=== PATIENT | female | born 1950 | race Asian ===

== ENCOUNTER 2016-03-30 21:21 | Emergency (ER) | payer OTHER ==
[~2016-03-30] VITALS: Ht 160 cm; Wt 61.7 kg
[2016-03-30 21:24] VITALS: BP 162/90; PULSE 80; RESP 18; TEMP 97.9; O2SAT 99
[2016-03-30] MEDS ORDERED: NACL 0.9% 1,000 ML IV ONE (21:30)
[2016-03-30 22:23] LABS: BASOPHILS # (AUTO) 0.1 K/uL (0.0-0.2); BASOPHILS % (AUTO) 0.5 % (0.0-2.0); EOSINOPHILS % (AUTO) 0.2 % (0.0-4.0); HEMATOCRIT 36.1 % (36-48); HEMOGLOBIN 12.4 g/dL (12.0-16.0); LYMPHOCYTES # (AUTO) 1.7 K/uL (1.0-5.5); LYMPHOCYTES % (AUTO) 15.4 % (20.5-51.5); MEAN CORPUSCULAR HEMOGLOBIN 30 pg (27-31); MEAN CORPUSCULAR HGB CONC 34 % (32-36); MEAN CORPUSCULAR VOLUME 87 fL (79.0-98.0); MONOCYTES # (AUTO) 0.6 K/uL (0.0-1.0); MONOCYTES % (AUTO) 5.7 % (1.7-9.3); NEUTROPHILS # (AUTO) 8.6 K/uL (1.8-7.7); NEUTROPHILS % (AUTO) 78.2 % (40.0-70.0); PLATELET COUNT (AUTO) 204 K/uL (130-430); RED BLOOD CELL COUNT(AUTO) 4.15 MIL/uL (4.2-6.2); RED CELL DISTRIBUTION WIDTH 12.6 % (9.0-15.0)
[2016-03-30 22:34] LABS: CALCIUM 9.2 mg/dL (8.4-11.0); CREATININE 0.72 mg/dL (0.55-1.30); POTASSIUM 3.8 mmol/L (3.5-5.1)
[2016-03-30 22:38] LABS: ALBUMIN 3.9 g/dL (3.4-4.8); TOTAL BILIRUBIN 0.3 mg/dL (0.0-1.0); TOTAL PROTEIN, SERUM 7.9 g/dL (6.4-8.3)
[2016-03-30 23:37] LABS: CHOLESTEROL 174 mg/dL (<200); HDL CHOLESTEROL 66 mg/dL (>55); LDL CHOLESTEROL 100 mg/dL (<100); TRIGLYCERIDES 46 mg/dL (30-150)
[2016-03-31 00:44] LABS: BILIRUBIN,URINE NEGATIVE (NEGATIVE); BLOOD, URINE NEGATIVE (NEGATIVE); CLARITY/URINE CLEAR (CLEAR); COLOR,URINE YELLOW (YELLOW); GLUCOSE,URINE NEGATIVE (NEGATIVE); KETONES,URINE NEGATIVE (NEGATIVE); LEUKOCYTE ESTERASE ,URINE NEGATIVE (NEGATIVE); NITRITE, URINE NEGATIVE (NEGATIVE); PROTEIN URINE NEGATIVE (NEGATIVE); UROBILINOGEN,URINE 0.2 (0.2-1.0)
[2016-03-31 00:47] VITALS: BP 133/74; PULSE 81; RESP 18; TEMP 98.1; O2SAT 99
== END 2016-03-31 00:47 | disposition home or self-care (01) ==
LOC: SED 21:21
DX: H81.10 Benign paroxysmal vertigo, unspecified ear (principal); R11.2 Nausea with vomiting, unspecified
CPT/HCPCS: 36415; 80053; 80061; 81003; 84484; 85025; 93005; 96360; 99285; J7030

== ENCOUNTER 2016-08-29 07:16 | Outpatient (CLI) | payer OTHER ==
[2016-08-29 08:26] LABS: ALBUMIN 3.9 g/dL (3.4-4.8); CALCIUM 9.3 mg/dL (8.4-11.0); CREATININE 0.69 mg/dL (0.55-1.30); POTASSIUM 4.9 mmol/L (3.5-5.1); TOTAL BILIRUBIN 0.5 mg/dL (0.0-1.0)
== END 2016-08-29 20:00 | disposition home or self-care (01) ==
LOC: SLB 07:16
PROVIDERS: ATTEND Family Medicine
DX: R13.19 Other dysphagia (principal); R79.89 Other specified abnormal findings of blood chemistry
CPT/HCPCS: 36415; 80053; 80061; 83036

== ENCOUNTER 2017-01-27 07:54 | Outpatient (CLI) | payer OTHER ==
[2017-01-27 09:18] LABS: BASOPHILS % (AUTO) 0.1 % (0.0-2.0); EOSINOPHILS # (AUTO) 0.1 K/uL (0.0-0.4); EOSINOPHILS % (AUTO) 0.8 % (0.0-4.0); HEMATOCRIT 38.7 % (36-48); HEMOGLOBIN 12.7 g/dL (12.0-16.0); MEAN CORPUSCULAR HEMOGLOBIN 30 pg (27-31); MEAN CORPUSCULAR HGB CONC 33 % (32-36); MEAN CORPUSCULAR VOLUME 90 fL (79.0-98.0); MONOCYTES # (AUTO) 0.6 K/uL (0.0-1.0); MONOCYTES % (AUTO) 7.8 % (1.7-9.3); NEUTROPHILS # (AUTO) 4.6 K/uL (1.8-7.7); NEUTROPHILS % (AUTO) 64.3 % (40.0-70.0); PLATELET COUNT (AUTO) 277 K/uL (130-430); RED BLOOD CELL COUNT(AUTO) 4.28 MIL/uL (4.2-6.2); RED CELL DISTRIBUTION WIDTH 12.2 % (9.0-15.0); WHITE BLOOD COUNT (AUTO) 7.3 K/uL (4.8-10.8)
[2017-01-27 09:32] LABS: ALBUMIN 4.2 g/dL (3.4-4.8); CALCIUM 9.7 mg/dL (8.4-11.0); CREATININE 0.67 mg/dL (0.55-1.30); POTASSIUM 4.1 mmol/L (3.5-5.1); TOTAL BILIRUBIN 0.4 mg/dL (0.0-1.0)
[2017-01-27 10:02] LABS: ERYTHROCYTE SEDIMENTATION RATE 20 MM/HR (0-20)
[2017-01-28 11:07] LABS: RA LATEX TURBID <10.0 IU/mL (0.0-13.9)
[2017-01-28 18:16] LABS: ANTI NUCLEAR AB WITH REFLEX Negative (Negative)
[2017-01-29 08:34] LABS: HEMOGLOBIN A1C 5.7 % (4.8-5.6)
[2017-01-29 19:06] LABS: CCP IgG AB 3 units (0-19)
== END 2017-01-27 21:01 | disposition home or self-care (01) ==
LOC: SUS 07:54
PROVIDERS: ATTEND Physician Assistant Medical
DX: Z12.31 Encounter for screening mammogram for malignant neoplasm of breast (principal); R73.9 Hyperglycemia, unspecified; M13.0 Polyarthritis, unspecified
CPT/HCPCS: 36415; 76700; 80053; 80061; 82306; 83036; 85025; 85651; 86038; 86200; 86431; G0202

== ENCOUNTER 2017-02-20 10:32 | Outpatient (CLI) | payer OTHER ==
[2017-02-20 11:25] LABS: BILIRUBIN,URINE NEGATIVE (NEGATIVE); BLOOD, URINE NEGATIVE (NEGATIVE); CLARITY/URINE CLEAR (CLEAR); COLOR,URINE YELLOW (YELLOW); GLUCOSE,URINE NEGATIVE (NEGATIVE); KETONES,URINE TRACE (NEGATIVE); LEUKOCYTE ESTERASE ,URINE TRACE (NEGATIVE); NITRITE, URINE NEGATIVE (NEGATIVE); PH,URINE 5.5 (5.0-8.0); PROTEIN URINE NEGATIVE (NEGATIVE); UROBILINOGEN,URINE 0.2 (0.2-1.0)
[2017-02-20 11:50] LABS: BACTERIA,URINE FEW /HPF (None Seen); MUCUS,URINE 1+ /LPF (None Seen); RBC,URINE 0-3 /HPF (0-3)
[2017-02-21 12:06] LABS: PTH, INTACT 33 pg/mL (15-65)
== END 2017-02-20 20:31 | disposition home or self-care (01) ==
LOC: SLB 10:32
PROVIDERS: ATTEND Family Medicine
DX: M81.0 Age-related osteoporosis without current pathological fracture (principal)
CPT/HCPCS: 36415; 81000-TC; 82306; 83735-TC; 83970; 84155; 84155-TC; 84165; 84443-TC; 86335; 87086

== ENCOUNTER 2017-05-22 18:37 | Outpatient (CLI) | payer OTHER ==
[2017-05-26 06:08] LABS: IMMUNOGLOBULIN G, SERUM 1130 mg/dL (700-1600); IMMUNOGLOBULIN M, SERUM 108 mg/dL (26-217)
[2017-05-26 08:18] LABS: A/G RATIO 1.3 (0.7-1.7); ALBUMIN 4.4 g/dL (2.9-4.4); ALPHA-1-GLOBULIN 0.2 g/dL (0.0-0.4); ALPHA-2-GLOBULIN 0.8 g/dL (0.4-1.0); BETA GLOBULIN 1.2 g/dL (0.7-1.3); GAMMA GLOBULIN 1.2 g/dL (0.4-1.8); GLOBULIN, TOTAL 3.5 g/dL (2.2-3.9); M-SPIKE Not Observed g/dL (Not Observed)
[2017-05-27 04:17] LABS: BETA-2 MICROGLOBULIN, SERUM 1.5 mg/L (0.6-2.4)
[2017-05-30 02:29] LABS: IMMUNOGLOBULIN E,TOTAL 25 IU/mL (0-100)
== END 2017-05-22 20:00 | disposition home or self-care (01) ==
LOC: SLB 18:37
PROVIDERS: ATTEND Family Medicine
DX: R80.0 Isolated proteinuria (principal); E78.2 Mixed hyperlipidemia
CPT/HCPCS: 36415; 82232; 82784; 82785; 84155; 84165

== ENCOUNTER 2017-06-26 07:59 | Outpatient (CLI) | payer OTHER | END 2017-06-26 19:41 | disposition home or self-care (01) | LOC: SLB 07:59 | PROVIDERS: ATTEND Specialist | DX: R80.3 Bence Jones proteinuria (principal) | CPT/HCPCS: 36415 ==

== ENCOUNTER 2017-12-28 07:39 | Outpatient (CLI) | payer OTHER ==
[2017-12-28 09:18] LABS: CALCIUM 9.4 mg/dL (8.4-11.0); CREATININE 0.57 mg/dL (0.55-1.30); POTASSIUM 3.8 mmol/L (3.5-5.1); TOTAL BILIRUBIN 0.4 mg/dL (0.0-1.0)
[2017-12-28 09:42] LABS: HEMATOCRIT 39.2 % (36-48); HEMOGLOBIN 13.2 g/dL (12.0-16.0); MEAN CORPUSCULAR HEMOGLOBIN 30 pg (27-31); MEAN CORPUSCULAR HGB CONC 34 % (32-36); MEAN CORPUSCULAR VOLUME 90 fL (79.0-98.0); PLATELET COUNT (AUTO) 271 K/uL (130-430); RED BLOOD CELL COUNT(AUTO) 4.35 MIL/uL (4.2-6.2); RED CELL DISTRIBUTION WIDTH 12.7 % (9.0-15.0); WHITE BLOOD COUNT (AUTO) 7.1 K/uL (4.8-10.8)
[2017-12-28 09:43] LABS: BASOPHILS % (AUTO) 0.2 % (0.0-2.0); EOSINOPHILS # (AUTO) 0.1 K/uL (0.0-0.4); EOSINOPHILS % (AUTO) 0.9 % (0.0-4.0); LYMPHOCYTES # (AUTO) 2.1 K/uL (1.0-5.5); LYMPHOCYTES % (AUTO) 28.9 % (20.5-51.5); MONOCYTES # (AUTO) 0.6 K/uL (0.0-1.0); MONOCYTES % (AUTO) 8.3 % (1.7-9.3); NEUTROPHILS # (AUTO) 4.3 K/uL (1.8-7.7); NEUTROPHILS % (AUTO) 61.7 % (40.0-70.0)
== END 2017-12-28 19:03 | disposition home or self-care (01) ==
LOC: SRD 07:39
PROVIDERS: ATTEND Family Medicine
DX: Z00.01 Encounter for general adult medical examination with abnormal findings (principal); M47.896 Other spondylosis, lumbar region; M81.0 Age-related osteoporosis without current pathological fracture; I70.90 Unspecified atherosclerosis
CPT/HCPCS: 36415; 72052; 72110; 80053; 80061; 82306; 85025

== ENCOUNTER 2018-01-28 08:25 | Outpatient (CLI) | payer OTHER | END 2018-01-28 19:21 | disposition home or self-care (01) | LOC: SMA 08:25 | PROVIDERS: ATTEND Physician Assistant Medical | DX: Z12.31 Encounter for screening mammogram for malignant neoplasm of breast (principal); N85.4 Malposition of uterus; R05 Cough | CPT/HCPCS: 71046-TC; 76830-TC; 76857; 77067 ==

== ENCOUNTER 2019-12-28 08:52 | Emergency (ER) | payer OTHER ==
[~2019-12-28] VITALS: Ht 162.6 cm; Wt 61.2 kg
--- NOTE | 2019-12-28 08:52 | NUR ---
Placed in room 3 . Placed on athletic monitor, blood pressure machine and pulse oximeter. To gown for exam. Side rails up.
--- NOTE | 2019-12-28 08:55 | NUR ---
Pt walked in to ER with c/o chest pain 08/09, non-radiating, reports it feels like pressure. Reports h/o HTN, denies SOB at this time. V/S stable, pt is afebrile. Currently resting in bed, will continue to monitor.
--- NOTE | 2019-12-28 09:05 | NUR ---
EKG performed at BS by RN. Physician given copy of EKG for review.
[2019-12-28 09:11] VITALS: BP_SYST 135
--- NOTE | 2019-12-28 09:15 | NUR ---
ER Dr. Krishnamurthy at bedside examining patient.
--- NOTE | 2019-12-28 09:23 | NUR ---
Radiology at bedside for CXR.
--- NOTE | 2019-12-28 09:29 | NUR ---
Lab at bedside for blood draw.
[2019-12-28 09:42] LABS: BASOPHILS % (AUTO) 0.7 % (0.0-2.0); EOSINOPHILS % (AUTO) 0.5 % (0.0-4.0); HEMATOCRIT 39.2 % (36-48); HEMOGLOBIN 13.1 g/dL (12.0-16.0); LYMPHOCYTES # (AUTO) 1.1 K/uL (1.0-5.5); LYMPHOCYTES % (AUTO) 18.6 % (20.5-51.5); MEAN CORPUSCULAR HEMOGLOBIN 31 pg (27-31); MEAN CORPUSCULAR HGB CONC 34 % (32-36); MEAN CORPUSCULAR VOLUME 94 fL (79.0-98.0); MONOCYTES # (AUTO) 0.4 K/uL (0.0-1.0); MONOCYTES % (AUTO) 6.6 % (1.7-9.3); NEUTROPHILS # (AUTO) 4.5 K/uL (1.8-7.7); NEUTROPHILS % (AUTO) 73.6 % (40.0-70.0); PLATELET COUNT (AUTO) 299 K/uL (130-430); RED BLOOD CELL COUNT(AUTO) 4.18 MIL/uL (4.2-6.2); RED CELL DISTRIBUTION WIDTH 13.2 % (9.0-15.0); WHITE BLOOD COUNT (AUTO) 6.1 K/uL (4.8-10.8)
[2019-12-28 09:49] LABS: CALCIUM 9.6 mg/dL (8.4-11.0); CREATININE 0.68 mg/dL (0.55-1.30)
[2019-12-28 09:55] LABS: ALBUMIN 4.1 g/dL (3.4-4.8); TOTAL BILIRUBIN 0.3 mg/dL (0.0-1.0)
[2019-12-28 10:38] VITALS: BP_SYST 135
--- NOTE | 2019-12-28 10:38 | NUR ---
Patient given written and verbal discharge instructions and verbalizes understanding. ER MD discussed with patient the results and treatment provided. Patient in stable condition. ID arm band removed. No prescriptions given. Patient educated on pain management and to follow up with PMD. Pain Scale 0. Opportunity for questions provided and answered. Medication side effect fact sheet provided.
== END 2019-12-28 10:38 | disposition home or self-care (01) ==
LOC: SED 08:52
DX: R07.89 Other chest pain (principal); K21.9 Gastro-esophageal reflux disease without esophagitis
CPT/HCPCS: 36415; 71045; 80053; 84484; 85025; 93005; 99285